=== PATIENT | female | born 1960 | race African-American/Black ===

== ENCOUNTER 2024-05-19 18:44 | Emergency (ER) | payer OTHER ==
[~2024-05-19] VITALS: Ht 175.3 cm; Wt 90.7 kg
[2024-05-19 19:28] VITALS: PULSE 77; RESP 20; TEMP 98.7
[2024-05-19 19:58] LABS: BASOPHILS % 0.9 % (0.0-1.0); EOSINOPHILS # (AUTO) 0.1 (0.0-0.4); EOSINOPHILS % 2.6 % (0.0-6.0); HEMATOCRIT 41.4 % (34.2-44.1); HEMOGLOBIN 13.5 g/dL (12.0-16.0); LYMPHOCYTES # (AUTO) 3.1 (1.0-3.2); MEAN CORPUSCULAR HEMOGLOBIN 30.2 pg (28-32); MEAN CORPUSCULAR HGB CONC 32.6 g/dL (31-35); MEAN CORPUSCULAR VOLUME 92.6 fL (81-99); MONOCYTES # (AUTO) 0.4 (0.2-0.8); MONOCYTES % 9.4 % (4.4-11.3); NEUTROPHILS # (AUTO) 0.9 (2.1-6.9); NEUTROPHILS % 20.1 % (38.7-80.0); PLATELET COUNT 141 x10e3/uL (140-360); RED BLOOD COUNT 4.47 x10e6/uL (3.6-5.1); RED CELL DISTRIBUTION WIDTH 12.9 % (11.7-14.4); WHITE BLOOD COUNT 4.66 x10e3/uL (4.8-10.8)
[2024-05-19 20:21] LABS: ALANINE AMINOTRANSFERASE 59 IU/L (0-55); ALBUMIN 3.7 g/dL (3.5-5.0); ALBUMIN/GLOBULIN RATIO 1.1 (0.8-2.0); ALKALINE PHOSPHATASE 138 IU/L (40-150); ANION GAP 12.9 mmol/L (8-16); BILIRUBIN,TOTAL 0.4 mg/dL (0.2-1.2); BLOOD UREA NITROGEN 12 mg/dL (7-26); BUN/CREATININE RATIO 15 (6-25); CALCIUM 8.7 mg/dL (8.4-10.2); CARBON DIOXIDE 23 mmol/L (22-29); CHLORIDE 106 mmol/L (98-107); CREATINE KINASE 445 IU/L (29-168); CREATININE, SERUM 0.79 mg/dL (0.57-1.11); EST GLOMERULAR FILTRATION RATE 83 ML/MIN (>=60); GLUCOSE 86 mg/dL (74-118); POTASSIUM 3.9 mmol/L (3.5-5.1); SODIUM 138 mmol/L (136-145); TOTAL PROTEIN 7.1 g/dL (6.5-8.1)
[2024-05-19 20:29] LABS: CORONAVIRUS COVID-19 AG NEGATIVE (NEGATIVE); INFLUENZA A AG NEGATIVE (NEGATIVE); INFLUENZA B AG NEGATIVE (NEGATIVE); STREPTOCOCCUS GRP A ANTIGEN NEGATIVE (NEGATIVE)
[2024-05-19 20:36] LABS: TROPONIN I < 0.001 ng/mL (0-0.300)
[2024-05-19] MEDS: HYDRALAZINE HCL 20 MG/ML VIAL IV STA (20:36)
[2024-05-19] MEDS ORDERED: SODIUM CHLORIDE 0.9% 1000ML 1,000 ML ONE (21:04)
[2024-05-19] MEDS ORDERED: VENTOLIN HFA18 GM INH (21:52)
[2024-05-19] MEDS ORDERED: AZITHROMYCIN250 MG PO (21:52)
[2024-05-19] MEDS ORDERED: PREDNISONE20 MG PO (21:52)
[2024-05-19] MEDS: SODIUM CHLORIDE 0.9% 1000ML 1,000 ML IV STA (21:57)
[2024-05-19 22:30] VITALS: BP 166/84; PULSE 74; RESP 18; TEMP 98.3; O2SAT 98
== END 2024-05-19 22:00 | disposition home or self-care (01) ==
LOC: ER 18:50
DX: R05.9 Cough, unspecified (principal); I16.0 Hypertensive urgency; I10 Essential (primary) hypertension; Z11.52 Encounter for screening for COVID-19
CPT/HCPCS: 36415; 71045; 80053; 82550; 83518; 83690; 83880; 84484; 85025; 87070; 87428; 93005; 99284; J0360; J7030

== ENCOUNTER 2024-12-20 12:06 | Emergency (ER) | payer OTHER ==
[~2024-12-20] VITALS: Ht 177.8 cm; Wt 90.7 kg
[~2024-12-20 12:06] MED LIST: AZITHROMYCIN250 MG PO; PREDNISONE20 MG PO; VENTOLIN HFA18 GM INH
[2024-12-20 12:10] VITALS: TEMP 98.2
[2024-12-20 13:30] VITALS: PULSE 72; RESP 16; O2SAT 100
== END 2024-12-20 13:30 | disposition home or self-care (01) ==
LOC: ER 12:37
DX: S70.01XA Contusion of right hip, initial encounter (principal); V43.52XA Car driver injured in collision with other type car in traffic accident, initial encounter; Y92.488 Other paved roadways as the place of occurrence of the external cause; I10 Essential (primary) hypertension; F17.210 Nicotine dependence, cigarettes, uncomplicated
CPT/HCPCS: 99283